=== PATIENT | female | born 1990 | race Hispanic/Latino ===

== ENCOUNTER 2023-06-05 18:19 | Emergency (ER) | payer MEDICAID, OTHER ==
[~2023-06-05] VITALS: Ht 162.6 cm; Wt 95.7 kg
[2023-06-05] MEDS ORDERED: HYDROCODONE/ACETAMINOPHEN 5/325 MG TAB PO ONE (20:00)
[2023-06-05] MEDS ORDERED: KETOROLAC 30MG VIAL (30MG/ML) IM ONE (20:00)
[2023-06-05] MEDS ORDERED: CYCL5TAB PO (21:20)
[2023-06-05] MEDS ORDERED: IBUP-2070 PO (21:20)
[2023-06-05] MEDS ORDERED: ACET-2079 PO (21:20)
[2023-06-05 21:54] VITALS: BP 142/78; PULSE 88; RESP 18; O2SAT 99
== END 2023-06-05 22:07 | disposition home or self-care (01) ==
LOC: EDH 18:19
DX: S93.492A Sprain of other ligament of left ankle, initial encounter (principal); W18.39XA Other fall on same level, initial encounter; Y93.89 Activity, other specified; Y92.89 Other specified places as the place of occurrence of the external cause; Y99.8 Other external cause status
CPT/HCPCS: 99284; 29515; 73610; 73630; 96372; J1885

== ENCOUNTER 2024-05-06 06:26 | Day surgery (SDC) | payer BC ==
[2024-05-01 15:46] LABS: BASOPHILS # (AUTO) 0.03 K/uL (0.00-0.20); BASOPHILS % (AUTO) 0.4 % (0.0-5.0); EOSINOPHILS # (AUTO) 0.09 K/uL (0.00-0.70); EOSINOPHILS % (AUTO) 1.2 % (0.0-8.0); HEMATOCRIT 39.9 % (36-48); IMMATURE GRANULOCYTE ABSOLUTE 0.02 K/uL (0-1); LYMPHOCYTES # (AUTO) 1.9 K/uL (1.0-4.8); LYMPHOCYTES % (AUTO) 25.9 % (21.0-51.0); MEAN CORPUSCULAR HGB CONC 32.6 g/dL (32.0-36.0); MEAN CORPUSCULAR VOLUME 88.9 fL (79-99); MONOCYTES # (AUTO) 0.4 K/uL (0.1-1.0); MONOCYTES % (AUTO) 5.9 % (3.0-13.0); NEUTROPHILS # (AUTO) 4.9 K/uL (1.8-7.7); NEUTROPHILS % (AUTO) 66.3 % (40.0-77.0); PLATELET COUNT (AUTO) 204 K/uL (130-400); RED BLOOD CELL COUNT(AUTO) 4.49 MIL/uL (4.00-5.50); RED CELL DISTRIBUTION WIDTH 12.8 % (11.0-15.5); WHITE BLOOD COUNT (AUTO) 7.4 K/uL (4.8-10.8)
[2024-05-01 16:17] VITALS: BP 141/79; PULSE 68; RESP 16; TEMP 98.1
[~2024-05-06] VITALS: Ht 162.6 cm; Wt 98.7 kg
[2024-05-06] VITALS (16 sets, daily range): BP systolic 117–145; BP diastolic 62–85; PULSE 68–86; RESP 13–20; TEMP 97.6–98.3
[~2024-05-06 06:26] MED LIST: NAPR220T57 PO
[2024-05-06] MEDS ORDERED: phenylEPHRINE HCL 10 MG/ML 1ML VIAL IV ONE (06:57)
[2024-05-06] MEDS ORDERED: ondanSETRON 4MG INJ ONE (06:57)
[2024-05-06] MEDS ORDERED: LIDOCAINE PF 100MG/5ML (2%) SYRINGE 5ML ONE (06:57)
[2024-05-06] MEDS ORDERED: MIDAZOLAM HCL 1 MG/ML 2ML VIAL ONE (06:58)
[2024-05-06] MEDS ORDERED: proPOFol 10 MG/ML 20ML VIAL IV ONE (06:58)
[2024-05-06] MEDS ORDERED: FENTanyl CITRate PF 50 MCG/1 ML 2ML VIAL ONE ×2 (06:58→09:22)
[2024-05-06] MEDS ORDERED: rocuRONium bROMide 10MG/1ML 5ML VL ONE (06:58)
[2024-05-06] MEDS: PHENAZOpyridine HCL 200 MG TAB 200 MG TABLET ONE (07:00)
[2024-05-06] MEDS: dexaMETHasone SOD PHOSPHATE 4 MG/ML 1ML VIAL ONE (07:00)
[2024-05-06] MEDS: SCOPOLAMINE HYDROBROMIDE 1 EACH ADH..PATCH TD ONE (07:00)
[2024-05-06] MEDS: ceFAZolin SODIUM 2 GM VIAL ONE (07:01)
[2024-05-06] MEDS: LACTATED RINGERS 1000ML 1,000 ML IV ONE (07:01)
[2024-05-06] MEDS ORDERED: acetaMINOPHEN 100 ML ONE (07:14)
[2024-05-06] MEDS ORDERED: ACET-2247 PO (07:22)
[2024-05-06] MEDS ORDERED: CELE-125 PO (07:22)
[2024-05-06] MEDS ORDERED: GLYCOPYRROLATE 0.2 MG/ML 5 ML VIAL ONE (08:31)
[2024-05-06] MEDS ORDERED: NEOSTIGMINE METHYLSULFATE 1MG/ML IV ONE (08:32)
[2024-05-06] MEDS: BUPIvacaine/PF 0.25% 30ML VIAL IJ ONE (08:45)
[2024-05-06] MEDS ORDERED: dexaMETHasone SOD PHOSPHATE 4 MG/ML 1ML VIAL ONE (09:22)
[2024-05-06] MEDS ORDERED: ketOROlac 30MG VIAL (30MG/ML) ONE (09:51)
--- NOTE | 2024-05-06 10:22 | OP ---
Operative Note: DATE OF PROCEDURE: 05/06/24 SURGEON: RO LR MD T[place] MARSHAL: [NONE] ANESTHESIA: [GENERAL] ANESTHESIOLOGIST/TANNERY WORKER: [GENERAL] PREOPERATIVE DIAGNOSIS: [CHRONIC PELVIC PAIN, CLINICAL ENDOMETRIOSIS, ABNORMAL UTERINE BLEEDING, DESIRES IUD CONTRACEPTION] POSTOPERATIVE DIAGNOSIS: [SAME PLUS ADHESIONS] SYNOPSIS: [NA] PROCEDURE: [DA BILLIE LYSIS OF ADHESIONS, EXCISION OF PERITONEAL ENDOMETRIOSIS X 3, BILATERAL SALPINGECTOMY, CYSTOSCOPY, HYSTEROSCOPY d&c AND LILETTA IUD INSERTION] ESTIMATED BLOOD LOSS: [MINIMAL] INDICATIONS: [NA] DESCRIPTION OF PROCEDURE: [THE PATIENT AND HER SISTER WERE VISITED IN THE HOLDING AREA AND THE PLANNED PROCEDURE WAS STATED IN PLAIN [place] AND THE PATIENT HAD NO ADDITIONAL QUESTIONS AND WAS READY TO PROCEED. sHE WAS TAKEN TO THE OPERATING ROOM AND PLACED UNDER GENERAL ANESTHESIA, PREPPED AND DRAPED IN THE USUAL STERILE FASHION IN THE DORSAL LITHOTOMY POSITION IN THE [facility] AND A TIME OUT WAS TAKEN TO CONFIRM THE PATIENT'S IDENTITY, THE PLANNED OPERATION, HER ALLERGIES AND MEDICATION ADMINISTRATION. A WEIGHTED SPECULUM WAS PLACED IN THE VAGINA AND THE ANTERIOR LIP OF THE CERVIX WAS VISUALIZED AND THE UTERUS SOUNDED TO 8-9 CM AND THE CERVIX WAS DILATED TO APPROX 9 MM AND THE HYSTEROSCOPE WITH NORMAL SALINE DISTENSION MEDIA WAS PLACED WITH FINDING OF SOME BULGING OF A SMALL FIBROID ANTERIOR FUNDUS, AND FLUFFY TISSUE, BILATERAL OSTIA SEEN, THE HYSTEROSCOPE WAS REMOVED AND ALL SURFACES WERE CURETTED UNTIL GRITTY WITH RETURN OF A MODERATE AMOUNT OF TISSUE, THE HYSTEROSCOPE WAS REPLACED AND ALL SURFACES WERE NOTED TO BE CLEAN, THE UTERINE MANIPULATOR WAS PLACED AND THE BALLOON INFLATED, A SPIVEY WAS PLACED. THE SURGEON'S GLOVES WERE CHANGED, THE PATIENT WAS PLACED FLAT AND AFTER CONFIRMING DECOMPRESSION OF THE STOMACH, 1/4 % MARCAINE WITH EPI WAS INFILTRATED INTHE LEFT MIDCLAVICULAR LINE ABOUT 2 CM BELOW THE COSTAL MARGIN AND AN 8 MM INCISION WAS MADE, THE VERESS NEEDLE WAS PASSED AND INTRA ABDOMINAL PLCEMENT WAS CONFIRMED WITH STERILE SALINE AND THE DROP TEST AND THE ABDOMEN WAS INSUFFLATED TO A GOOD DOME OF CO2, THE NEEDLE WAS REMOVED ANDTHE DIRECT VISION DAVINCI SLEEVE, TROCAR AND CAMERA WERE PLACED, INTRA ABDOMINAL PLACEMENT AND LACK OF TRAUMA WERE NOTED ANDTHE PATIENT WAS PLACED INTO STEEPEST TRENDELENBERG POSITION AND SHE HAD VERY REDUNDANT RECTOSIGMOID AND THE ASCENDING COLON AND APPENDIX ALSO INVADED THE PELVIS, SHE WAS CARI OUT TO ABOUT 19% TILT AND INFILTRATION, INCISION AND PLACEMENT OF AN UMBILICAL AND RIGHT SIDED DAVINCI SLEEVE WAS CARRIED OUT UNDER DIRECT VISION ATRAUMATICALLY AND DUSTIN CLOSES WERE PLACED AT THOSE SITES, THE DA BILLIE WAS DOCKED AND THE FENESTRATED BIPOLAR AND MONOPOLAR SCISSORS WERE PLACED. THE BOWEL WAS VERY REDUNDANT AND WOULD NOT STAY OUT OF THE FIELD SO VLOCK SUTURES WERE USED TO SUTURE THE EPIPLOICA TO THE SIDEWALL BILATERALLY UNTIL VISUALIZATION COULD BE ACCOMPLISHED. THE PELVIS HAD ENDOMETRIOSIS ADHESIONS OBLITERATING THE ENTIRE CULDESAC WITH THE OVARIES ADHESED ALL AROUND ANDTHE RECTOSIGMOID ADHESED TO THE POSTERIOR UTERUS WITH NO PATHWAY AT ALL AROUND ANY OFTHE STRUCTURES TO THE CULDESAC, THE TUBES WERE TORTUOUS AND BOTH APPEARED TO HAVE HYDROSALPINX. POWDER BURN AND RED AND VESICULAR ENDOMETRIOSIS WAS SEEN ALL OVER THE UTERUS, ANTERIOR TO THE UTERUS IN DISCRETE AREAS AND ON THE LEFT BROAD LIGAMENT AND AN AREA ON THE ANTRIOR ABDOMINAL WALL OVER THE APPENDIX WERE SEEN, THE LEFT SIDED AND SOME ANTERIOR AND THE RIGHT ANTERIOR ABDOMINAL WALL WERE EXCISED AND SENT SPECIMENS. THE MONOPOLAR SCISSORS WERE UTILIZED TO FREETHE TUBESAND THEN THE VESSEL SEALER WAS USED TO EXCISE THEM AND THEY WERE BROUGHT OUT OF THE ABDOMEN. A PHOTOGRAPH WAS TAKEN FOR THE PATIENT AFTER THE EXCISION OF THE LEFT TUBE. THE AREA WAS IRRIGATED AND ALL WAS HEMOSTATIC, THE SUTURES WERE CUT AND THE BARBED SUTURE WAS REMOVED IN AFORWARD DIRECTION ON BOTH SIDES AND THE SUTURE BROUGHT OUT OF THE ABDOMEN. THE ABDOMEN WAS DESUFFLATED AND CYSTOSCOPY WAS PERFORMED AND PHOTOS WERE TAKEN FOR THE CHART, THERE WAS SOME GENERAL ERYTHEMA AND PROMINENT SMALL VESSELS GLOBALLY AND NEAR THE BASE OF THE BLADDER AND THE URETERAL ORIFICES THERE WAS MORE CONCENTRATED ERYTHEMA AND VASCULARITY. BOTH ORIFIES EFFLUXED STRONG JETS OF ORANGE URINE, THE CYSTO WAS REMOVED AND SALINE WAS LEFT IN THE BLADDER FOR LATER VOIDING TRIAL. A WEIGHTED SPECULUM WAS PLACED IN THE VAGINA AND THE ANTERIOR LIP OF THE CERVIX WAS GRASPED WITH AN ALLIS CLAMP AND THE UTERUS SOUNDED TO 9 CM AND THE LILETTA IUD WAS PLACED ACCORDING TO DIRECTOR PATIENT INSTRUCTIONS AND THE STRING TRIMMED TO ABOUT 3 CM. THE ALLIS AND WEIGHTED SPECULUM WERE REMOVED. THE ABDOMEN WAS DESUFFLATED, THE SLEEVES WERE REMOVED AND THE PREVIOUSLY PLACED DUSTIN CLOSES WERE TIED AND THEN THE SKIN CLOSED SUBCUTICULARLY WITH 4-0 MONOCRYL, DERMABOND WAS PLACED. THE PATIENT TOLERATED THE PROCEDURE WELL, SPONGE, LAP AND NEEDLE COUNTS WERE CORRECT TIMES TWO ATTHE END OF THE CASE AND THE PATIENT WAS TAKEN TO THE RECOVERY ROOM IN STABLE CONDITION, THE PATIENT'S SISTER WAS CONTACTED AND NOTIFIED OF THE FINDINGS ANDTHE PATIENT'S STABILITY. RO LR FACOG FACS ] RO LR MD May 06, 2024 10:22
--- NOTE | 2024-05-06 11:55 | NUR ---
PT TOLERATING PO FLUIDS WELL SOME NAUSEA AND PAIN AMBULATES TO RR AND BACK NO PROBLEM OR C/O CLEAR LIQUID DIET ORDERED FAMILY AT SIDE V/S MONITORED
--- NOTE | 2024-05-06 12:15 | NUR ---
PT FEELING DIZZY AT TIMES WITH NAUSEA CONTINUES A FEBRILE V/S MONITORED
[2024-05-06] MEDS: ONDANSETRON IVP SCH (12:48)
[2024-05-06] MEDS: ondanSETRON 4MG INJ ONE (12:48)
[2024-05-06] MEDS: [UNRECOGNIZED DRUG - OTHER] IVP SCH (12:48)
--- NOTE | 2024-05-06 13:50 | NUR ---
PT CONTINUES TO FEEL NAUSEA AND DIZZY SOME EMESIS NOTED IN BAG CLEAR
--- NOTE | 2024-05-06 14:45 | NUR ---
PT REFUSES MEDS ORDERED BY DR LR FOR NAUSEA STATES SHE WILL WAIT AND GO HOME
--- NOTE | 2024-05-06 15:29 | NUR ---
AMBULATING WELL STATES FEELS BETTER NO VOMIT SOME NAUSEA BUT FEELING BETTER PT TO VOID SCANT LIGHT RED BLOOD NOTED ON PERIPAD SOME PAIN NOTED WHEN AMBULATING TOLERATING WELL
== END 2024-05-06 15:32 | disposition home or self-care (01) ==
LOC: DAH 06:26
PROVIDERS: ATTEND Obstetrics & Gynecology
DX: N80.30 Endometriosis of pelvic peritoneum, unspecified (principal); N93.9 Abnormal uterine and vaginal bleeding, unspecified; R10.2 Pelvic and perineal pain; N80.00 Endometriosis of the uterus, unspecified; Z30.2 Encounter for sterilization; N70.11 Chronic salpingitis; G89.29 Other chronic pain; E11.9 Type 2 diabetes mellitus without complications; Z79.899 Other long term (current) drug therapy
CPT/HCPCS: 84703; 85025; 86850 ×2; 86900 ×2; 86901 ×2; 36415 ×2; 58662; 58661; 58558; 81025; 88302; 88305; 58300; A6260; J1100 ×2; A4663; J7030; J7120 ×2; A4344; A4215 ×2; J3010 ×2; J0665; J3490 ×2; J2003; J2250; J2704; J2405 ×2; J1885; J2710; J2371; J2270; J0690; A4649; A4222; A4221; A4216; A4223 ×2